=== PATIENT | female | born 1935 | race Caucasian/White ===

== ENCOUNTER 2016-09-20 07:48 | Day surgery (SDC) | payer MEDICARE, OTHER ==
[~2016-09-20] VITALS: Ht 170.2 cm; Wt 83.9 kg
[~2016-09-20 07:48] MED LIST: AMOXICILLIN500 MG PO; CHOLEST OFF PO; ESTRACE1 MG PO; FISH OIL1000 MG PO; LEVOTHYROXIN100 MCG PO; LEVOTHYROXIN112 MC1 PO; LOPRESSOR25 M1 PO; METOPROL TAR25 MG PO; NAPROSYN500 MG PO; OMEGA 3340 MG PO; UNKNOWN MEDICATIONS; VITAMIN B-121000 MCG PO; VITAMIN C500 M6 PO; VITAMIN D31000 UNI1 PO; [UNRECOGNIZED DRUG - REMARK]; [UNRECOGNIZED DRUG - REMARK]
[2016-09-20 11:10] VITALS: BP 152/64
== END 2016-09-20 11:23 | disposition home or self-care (01) ==
LOC: ENDO 07:48 → ORM 10:00 → ENDO 11:23
PROVIDERS: ATTEND Surgery
PROC: 0DB68ZX Excision of Stomach, Via Natural or Artificial Opening Endoscopic, Diagnostic (ICD-10-PCS; principal; 2016-09-20)
DX: R13.10 Dysphagia, unspecified (principal); E78.5 Hyperlipidemia, unspecified; I10 Essential (primary) hypertension; K44.9 Diaphragmatic hernia without obstruction or gangrene; K31.7 Polyp of stomach and duodenum; Q39.8 Other congenital malformations of esophagus; K21.9 Gastro-esophageal reflux disease without esophagitis

== ENCOUNTER 2016-11-29 03:36 | Inpatient (IN) | payer MEDICARE, OTHER ==
[~2016-11-29] VITALS: Ht 170.2 cm; Wt 83.0 kg
--- NOTE | 2016-11-29 03:38 | NUR ---
PATIENT BROUGHT IMMEDIATELY TO TREATMENT AREA VIA WHEELCHAIR. UNDRESSED INTO A GOWN, PLACED ON MONITOR. TRIAGE COMPLETED AT BEDSIDE. AWAITING MD ANDREWS.
[2016-11-29 04:31] LABS: HEMATOCRIT 37.8 % (37.0-47.0); HEMOGLOBIN 12.9 g/dl (12.0-16.0); MEAN CELL VOLUME 93.6 fL CALC (80.0-100.0); MEAN CORPUSCULAR HGB 31.9 pG CALC (26.0-32.0); MEAN CORPUSCULAR HGB CONC 34.1 g/L CALC (32.0-36.0); RED BLOOD COUNT 4.04 mill/uL (4.20-5.60); RED CELL DISTRI WIDTH 13.1 % (11.5-15.5)
[2016-11-29] MEDS ORDERED: CRESTOR10 MG PO (04:31)
[2016-11-29 04:45] LABS: ALBUMIN 4.3 g/dL (3.2-5.0); ALKALINE PHOSPHATASE 101 u/l (38-126); ANION GAP 15 (6-22 (CALC)); BILIRUBIN, TOTAL 0.9 mg/dL (0.0-1.4); BUN 18 mg/dL (8-23); BUN/CREATININE RATIO 18 (12-20 (CALC)); CARBON DIOXIDE 23 mmol/l (22-30); CHLORIDE 105 mmol/l (95-108); GFR 53 ML/MIN (>=60 (CALC)); GFR FOR AFR.AMER. > 60 ML/MIN (>=60 (CALC)); GLUCOSE 149 mg/dL (82-115); POTASSIUM 4.1 mmol/l (3.5-5.1); SGOT/AST 59 u/l (9-36); SGPT/ALT 67 u/l (11-66); SODIUM 139 mmol/l (137-146); TOTAL PROTEIN 8.1 g/dL (6.3-8.2)
--- NOTE | 2016-11-29 04:50 | NUR ---
PATIENT RETURNS TO DEPARTMENT. CALL LIGHT WITHING REACH. GIVEN WARM BLANKETS.
--- NOTE | 2016-11-29 05:20 | NUR ---
PATIENT AMBULATORY TO BATHROOM WITHOUT ASSIST. AWAITING CT RESULTS AND PLAN OF CARE.
--- NOTE | 2016-11-29 05:50 | NUR ---
PATIENT ASSISTED WITH REPOSITIONING. GIVEN PILLOW AND WARM BLANKET. PATIENT STATES PAIN AND SWELLING FEELS LESS INTENSE.
[2016-11-29 06:12] LABS: IMMATURE GRANULOCYTES 0.3 % (0.0-1.0); NEUT# 8.2 thou/uL (2.00-7.15)
[2016-11-29 06:33] LABS: ACT PARTIAL THROMBO TIME 30.1 SECONDS (20.0-32.5); PROTHROMBIN TIME 10.8 SECONDS (9.0-12.5)
--- NOTE | 2016-11-29 06:55 | NUR ---
REPORT GIVEN TO SUSIE.
--- NOTE | 2016-11-29 07:30 | NUR ---
REPORT CALLED TO FLOOR. PATIENT READIED FOR TRANSPORT.
--- NOTE | 2016-11-29 07:40 | NUR ---
REPORT RECEIVED FROM LUANA IN ED, PT ARRIVED ON UNIT VIA W/C, ALERT AND ORIENTED X 3, ORIENTED TO ROOM AND CALL ODOM, SETTLED IN BED. LEFT FACE REDDENED AND SWOLEN WITH EYE ALMOST CLOSED SHUT BUT ABLE TO SEE ADEQUATELY. C/O PAIN @ 10/07 TO FACE, ISSUE ADDRESSED, CALL ODOM IN REACH.
[2016-11-29 07:53] VITALS: BP 171/79
--- NOTE | 2016-11-29 07:55 | NUR ---
PT TAKEN TO MED SURG PER W/C
[2016-11-29 11:31] VITALS: BP 158/76
[2016-11-29 11:36] LABS: URINE BILIRUBIN - DIPSTICK NEGATIVE (NEGATIVE); URINE BLOOD DIPSTICK SMALL (NEGATIVE); URINE CLARITY CLEAR; URINE COLOR YELLOW; URINE GLUCOSE - DIPSTICK NEGATIVE (NEGATIVE); URINE KETONE NEGATIVE (NEGATIVE); URINE NITRITE - DIPSTICK NEGATIVE (Negative); URINE PH 6.5 (4.5-8.0); URINE PROTEIN - DIPSTICK NEGATIVE (NEG-TRACE); URINE SPECIFIC GRAVITY 1.015; URINE UROBILINOGEN - DIPSTICK 0.2 E.U./dL (0.2)
[2016-11-29 11:38] LABS: URINE LEUK ESTERASE SMALL (NEGATIVE)
[2016-11-29 11:46] LABS: URINE SQUAMOUS EPITHELIAL CELL FEW EPI/hpf (0-FEW)
--- NOTE | 2016-11-29 12:10 | NUR ---
SITTING UP IN BED HAVING MEAL AT THIS ITME, ALL NEEDS ADDRESSED, CALL ODOM IN REACH.
--- NOTE | 2016-11-29 12:39 | NUR ---
S: SHEILA VAZ is a 81 F who presents with facial cellulitis and sinusitis. She has a history of HTN, hypothyroidism and hypercholesterolemia. All medications in patient's chart were reviewed. O: VS: BP 158/76 mmHg, P 80 bpm, RR 18 bpm, T 100.3 F W 83 kg, HT 170.18 cm , Scr= 1 mg/dL ,CrCl= 43.6 ml/min A: Blood culture is pending. Urine culture is pending. P: Patient is on piperacillin/tazobactam 4.5 gm IV q6H. Vancomycin ordered for pharmacy to dose. Start Vancomycin 1250 mg IV Q24H. Vancomycin trough is drawn before the 4th dose on 12/02/2016 at 0330. Vancomycin goal trough is between 15-20 mcg/ml. Pharmacy will follow and or advise on antibiotics use as needed.
[2016-11-29 15:17] LABS: CHOLESTEROL HDL RATIO 2.9 (<4.4 (CALC))
--- NOTE | 2016-11-29 16:00 | NUR ---
RESTING ON SOFA, SPOUSE AT BEDSIDE VISITING, CALL ODOM IN REACH.
[2016-11-29 16:06] VITALS: BP 158/77
[2016-11-29 19:17] VITALS: BP 135/75
--- NOTE | 2016-11-29 20:00 | NUR ---
PATIENT RESTING IN BED AT THIS TIME-AWAKE ALERT AND ORIENTEDX3. PATIENT WITH LEFT SIDE FACIAL SWELLING, REDNESS AND TINGLING TO THAT SIDE OF HER FACE. PATIENT WITH LEFT SIDE FACIAL DROOP. PATIENT STATES THAT IS HOW SHE WOKE UP LAST NIGHT. SPEECH IS CLEAR. IVF NS HUNG ORDERED TO LEFT WRIST AT 100CC/HR. SITE APPEARS HEALTHY AT THIS TIME. PATIENT IS VOIDING QS CLEAR YELLOW URINE IN BR. PATIENT WITH STEADY GAIT. SAFETY PRECAUTIONS REINFORCED. CALL LIGHT IN REACH. WILL CONT TO MONITOR.
[2016-11-29 23:17] VITALS: BP 119/65
--- NOTE | 2016-11-30 | NUR ---
PATIENT APPEARS SLEEPING AT THIS TIME WITH EYES CLOSED. IV ZOSYN INFUSING ORDERED. CALL LIGHT IN REACH. WILL CONT TO MONITOR.
[2016-11-30 03:45] VITALS: BP 166/90
--- NOTE | 2016-11-30 04:00 | NUR ---
PATIENT UP TO THE BR TO VOID-STEADY GAIT AND VOIDING QS YELLOW URINE. PATIENT GOWN IS SATURATED AND CHANGED. VS AND TEMP TAKEN AND RECORDED. AFEBRILE. VANCO HUNG ORDERED. SAFETY PRECAUTION REINFORCED. CALL LIGHT IN REACH. WILL CONT TO MONITOR.
[2016-11-30 06:02] LABS: HEMATOCRIT 35.8 % (37.0-47.0); MEAN CELL VOLUME 96.5 fL CALC (80.0-100.0); MEAN CORPUSCULAR HGB 32.3 pG CALC (26.0-32.0); MEAN CORPUSCULAR HGB CONC 33.5 g/L CALC (32.0-36.0); RED BLOOD COUNT 3.71 mill/uL (4.20-5.60); RED CELL DISTRI WIDTH 13.1 % (11.5-15.5)
[2016-11-30 06:09] LABS: CALCIUM 8.7 mg/dL (8.4-10.2); CREATININE 1.1 mg/dL (0.5-1.0); POTASSIUM 4.6 mmol/l (3.5-5.1)
--- NOTE | 2016-11-30 07:00 | NUR ---
SHIFT CHANGE REPORT FROM FRANKY LEDESMA AWAKE ALERT AND ORIENTED, NO C/O DISCOMFORT AT THIS TIME, STATES SHE FEELS MUCH BETTER TODAY, TELE MONITOR IN PLACE, CALL ODOM IN REACH.
[2016-11-30 07:06] LABS: IMMATURE GRANULOCYTES 0.6 % (0.0-1.0); NEUT# 9.6 thou/uL (2.00-7.15)
[2016-11-30 07:32] VITALS: BP 148/68
--- NOTE | 2016-11-30 11:43 | NUR ---
ASSISTED WITH SET-UP FOR SHOWER AT THIS TIME, WILL CONTINUE TO MONITOR.
[2016-11-30 11:46] VITALS: BP 170/85
--- NOTE | 2016-11-30 15:53 | NUR ---
SOCIALISING IN ROOM WITH FRIENTD AND FAMILY, ALL NEEDS MET, CALL ODOM IN REACH.
[2016-11-30 16:06] VITALS: BP 177/85
[2016-11-30 18:55] VITALS: BP 168/85
--- NOTE | 2016-11-30 20:00 | NUR ---
PT IN BED WATCHING TV RESPIRAITONS EVEN AND UNALBORED. DENIES PAIN TO LEFT SIDE OF FACE, EDEMA NOTICED MOSTLY TO LEFT PERIORBITAL AREA. NS INFUSING TO LW WITH NO COMPLICATIONS. ENCOURAGED TO USE CALL LIGHT FOR ASSISTANCE.
[2016-11-30 23:15] VITALS: BP 180/89
--- NOTE | 2016-11-30 23:35 | NUR ---
MEDICATED WITH APRESOLINE 10MG IV BY TORIN VELAZQUEZ FOR B/O .
--- NOTE | 2016-12-01 00:15 | NUR ---
B/P 158/78, HR 67
[2016-12-01 00:26] VITALS: BP 158/75
--- NOTE | 2016-12-01 01:20 | NUR ---
PT OUT OF ROOM AMBULATING IN HALLWAY WITH STEADY GAIT, C/O ITCHY FEELING TO LEFT SIDE OF FACE AND PAIN. MEDICATED WITH LORTAB AND BENADRYL AT THIS TIME. BACK TO BED. CALL LIGHT IN REACH.
[2016-12-01 04:00] VITALS: BP 135/71
--- NOTE | 2016-12-01 04:20 | NUR ---
VANCOMYCIN INFUSING TO LW TOLERATING WELL.
[2016-12-01 05:39] LABS: ANION GAP 14 (6-22 (CALC)); BUN 16 mg/dL (8-23); BUN/CREATININE RATIO 18 (12-20 (CALC)); CALCIUM 8.6 mg/dL (8.4-10.2); CARBON DIOXIDE 21 mmol/l (22-30); CHLORIDE 114 mmol/l (95-108); CREATININE 0.9 mg/dL (0.5-1.0); GFR 60 ML/MIN (>=60 (CALC)); GFR FOR AFR.AMER. > 60 ML/MIN (>=60 (CALC)); GLUCOSE 122 mg/dL (82-115); SODIUM 144 mmol/l (137-146)
[2016-12-01 05:50] LABS: HEMATOCRIT 34.1 % (37.0-47.0); HEMOGLOBIN 11.6 g/dl (12.0-16.0); MEAN CELL VOLUME 95.3 fL CALC (80.0-100.0); MEAN CORPUSCULAR HGB 32.4 pG CALC (26.0-32.0); RED BLOOD COUNT 3.58 mill/uL (4.20-5.60); RED CELL DISTRI WIDTH 13.1 % (11.5-15.5)
[2016-12-01 05:51] LABS: IMMATURE GRANULOCYTES 0.6 % (0.0-1.0); NEUT# 8.64 thou/uL (2.00-7.15)
--- NOTE | 2016-12-01 07:00 | NUR ---
SHIFT CHANGE REPORT FROM FRANKY JEROME AWAKE ALERT AND ORIENTED AMBULATING HALLWAY AT THIS TIME, NO C/O DISCOMFORT, IVF INFUSING, TELE MONITOR IN PLACE, CALL ODOM IN REACH.
[2016-12-01 08:40] VITALS: BP 138/72
[2016-12-01 12:35] VITALS: BP 164/76
--- NOTE | 2016-12-01 14:56 | NUR ---
REPORT DONALD PACKER AT [facility], TRANSPORTERS HERE AT THIS TIME TO RECEIVE PT AND LEAVING NOW.
--- NOTE | 2016-12-01 14:57 | NUR ---
Discharge instructions given. Patient verbalizes understanding of same. Discharged in stable condition via [facility] with *Other. All belongings sent with pt.
== END 2016-12-01 14:50 | disposition short-term general hospital (02) | DRG 603 ==
LOC: ED 03:36 → ED-I 06:34 → ED 07:13 → MS2 07:14
PROVIDERS: Emergency Medicine; Internal Medicine; Nurse Practitioner Family; ADMIT Internal Medicine; ATTEND Internal Medicine
DX: L03.211 Cellulitis of face (principal); D69.3 Immune thrombocytopenic purpura; B48.8 Other specified mycoses; J01.80 Other acute sinusitis; E03.9 Hypothyroidism, unspecified; E78.5 Hyperlipidemia, unspecified; I12.9 Hypertensive chronic kidney disease with stage 1 through stage 4 chronic kidney disease, or unspecified chronic kidney disease; N18.3 Chronic kidney disease, stage 3 (moderate); L50.9 Urticaria, unspecified; Z87.891 Personal history of nicotine dependence; Z86.19 Personal history of other infectious and parasitic diseases
CPT/HCPCS: J3370

== ENCOUNTER → 2018-06-12 | Outpatient (REF) | payer MEDICARE, OTHER ==
[~2018-06-12] MED LIST changes: +CRESTOR10 MG PO
[2018-06-12 08:37] LABS: HEMATOCRIT 37.5 % (37.0-47.0); HEMOGLOBIN 12.9 g/dl (12.0-16.0); MEAN CELL VOLUME 94.5 fL CALC (80.0-100.0); MEAN CORPUSCULAR HGB 32.5 pG CALC (26.0-32.0); MEAN CORPUSCULAR HGB CONC 34.4 g/L CALC (32.0-36.0); NEUT# 2.2 thou/uL (2.00-7.15); RED BLOOD COUNT 3.97 mill/uL (4.20-5.60); RED CELL DISTRI WIDTH 12.8 % (11.5-15.5)
[2018-06-12 10:01] LABS: ALBUMIN 4.3 g/dL (3.2-5.0); BILIRUBIN, TOTAL 0.4 mg/dL (0.0-1.4); CHOLESTEROL HDL RATIO 2.8 (<4.4 (CALC)); CREATININE 1.1 mg/dL (0.5-1.0); POTASSIUM 4.5 mmol/l (3.5-5.1); TOTAL PROTEIN 7.3 g/dL (6.3-8.2)
== END | disposition home or self-care (01) ==
LOC: LAB 08:06
PROVIDERS: ATTEND Internal Medicine
DX: D48.7 Neoplasm of uncertain behavior of other specified sites (principal); L40.9 Psoriasis, unspecified; M19.042 Primary osteoarthritis, left hand; N18.3 Chronic kidney disease, stage 3 (moderate); Z86.19 Personal history of other infectious and parasitic diseases; M25.50 Pain in unspecified joint; E78.5 Hyperlipidemia, unspecified

== ENCOUNTER → 2018-07-18 | Outpatient (REF) | payer MEDICARE, OTHER ==
[2018-07-18 08:39] LABS: CREATININE 1.3 mg/dL (0.5-1.0)
== END | disposition home or self-care (01) ==
LOC: CT 08:03
PROVIDERS: ATTEND Otolaryngology
DX: R13.13 Dysphagia, pharyngeal phase (principal); N17.8 Other acute kidney failure